=== PATIENT | female | born 1985 | race Caucasian/White ===

== ENCOUNTER 2018-11-10 19:07 | Emergency (ER) | payer OTHER ==
[~2018-11-10] VITALS: Ht 157.5 cm; Wt 84.8 kg
[2018-11-10 21:08] VITALS: Ht 157.5 cm; Wt 84.8 kg
[2018-11-10 21:55] VITALS: BP 169/106
== END 2018-11-10 21:55 | disposition home or self-care (01) ==
LOC: ED 19:07
DX: K02.9 Dental caries, unspecified (principal)

== ENCOUNTER 2020-02-14 20:41 | Emergency (ER) | payer OTHER, SELFPAY ==
[~2020-02-14] VITALS: Ht 157.5 cm; Wt 88.9 kg
[2020-02-14 20:56] VITALS: Ht 157.5 cm; Wt 88.9 kg
[2020-02-14 22:49] VITALS: BP 139/96
== END 2020-02-14 22:51 | disposition home or self-care (01) ==
LOC: ED 20:41
DX: U07.1 COVID-19 (principal)
CPT/HCPCS: Q0092